=== PATIENT | female | born 1960 ===

== ENCOUNTER 2021-08-31 16:25 | Emergency (ER) | payer SELFPAY ==
[~2021-08-31] VITALS: Ht 170.2 cm; Wt 104.3 kg
[2021-08-31 16:38] VITALS: BP 114/57
== END 2021-08-31 21:47 | disposition left against medical advice (07) ==
LOC: ER 16:25
DX: R50.9 Fever, unspecified (principal); M79.10 Myalgia, unspecified site; R06.02 Shortness of breath; Z53.21 Procedure and treatment not carried out due to patient leaving prior to being seen by health care provider; Z20.822 Contact with and (suspected) exposure to COVID-19
CPT/HCPCS: 36415; 87426